=== PATIENT | female | born 1980 | race Hispanic/Latino ===

== ENCOUNTER 2018-10-24 01:29 | Emergency (ER) | payer OTHER ==
[2018-10-24] MEDS ORDERED: DEXAMETHASONE SOD PHOSPHATE 10MG/ML 1ML VIAL ONE (02:51)
== END 2018-10-24 03:04 | disposition home or self-care (01) ==
LOC: EDH 01:29
DX: T78.49XA Other allergy, initial encounter (principal); I10 Essential (primary) hypertension; Z91.018 Allergy to other foods; X58.XXXA Exposure to other specified factors, initial encounter
CPT/HCPCS: 96372; 99283; J1100